=== PATIENT | female | born 1960 | race Asian ===

== ENCOUNTER 2017-12-23 17:20 | Emergency (ER) | payer OTHER, SELFPAY ==
[2017-12-23 17:27] VITALS: BP 131/55; PULSE 91; RESP 15; TEMP 37.5; O2SAT 100; BMI 21.2
--- NOTE | 2017-12-23 17:58 | ED.LOWEXIN ---
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 She states she does a lot of lifting and twisting. He states that for the last several days she has noticed pain over the left hip and extending down the lateral aspect of her proximal left leg. She denies any distinct injury. She has not felt any popping or clicking. No prior injury. MD complaint: other (Hip pain) Onset (ago): day(s) Injury: Left: hip Type of Injury: unknown Place: work Severity: mild Severity scale (1-10): 4 Relieving factors: nothing Exacerbating factors: weight bearing (Mainly with twisting.) Context: other (See above) Associated symptoms: other (No snap or pop, swelling, numbness, tingling. Patient has been bearing weight.) Other symptoms: none Related Data Allergies Allergy/AdvReac Type Severity Reaction Status Date / Time No Known Drug Allergies Allergy Verified 12/23/17 17:27 Review of Systems Review of Systems All systems reviewed & are unremarkable except as noted in HPI and below Constitutional Denies chills, Denies fever(s), Denies lethargy and Denies weakness Eyes Denies change in vision, Denies eye discharge, Denies irritation and Denies loss of vision ENT Ears, Nose, Mouth, and Throat: Denies change in voice, Denies neck pain and Denies sore throat Cardiovascular Denies chest pain, Denies irregular heart rhythm, Denies lightheadedness, Denies palpitations, Denies dyspnea, Denies dyspnea on exertion and Denies orthopnea Respiratory Denies cough, Denies dyspnea, Denies dyspnea on exertion and Denies wheezing Gastrointestinal Gastrointestinal: Denies abdominal pain, Denies change in bowel habits, Denies diarrhea, Denies nausea and Denies vomiting Genitourinary Denies hematuria, Denies flank pain, Denies urinary incontinence and Denies urinary urgency Musculoskeletal Denies neck pain Comments: Left hip pain Integumentary/Breasts Denies pruritus, Denies erythema, Denies rash and Denies wounds Neurologic Denies confusion, Denies loss of vision and Denies weakness Psychiatric Denies anxiety, Denies confusion, Denies depression, Denies homicidal ideation and Denies suicidal ideation Endocrine Denies palpitations Hematologic/Lymphatic Denies easy bruising Allergic/Immunologic Denies wheezing PFSH Social History Smoking Status: Never smoker Exam Initial Vital Signs Initial Vital Signs: Vital Signs Temperature 99.5 F 12/23/17 17:27 Pulse Rate 91 H 12/23/17 17:27 Respiratory Rate 15 12/23/17 17:27 Blood Pressure 131/55 H 12/23/17 17:27 Pulse Oximetry 100 12/23/17 17:27 Eyes General: appearance normal, both eyes and all related structures Eyelids: eyelids normal Conjunctivae: conjunctivae normal Sclera: sclerae normal Pupils: PERRL EOM: EOM intact bilaterally Neck Neck: normal visual inspection, trachea midline, No lymphadenopathy, No midline deformity and No JVD Lymphatic: No lymphedema Resp Effort & Inspection: normal respiratory effort Cardio Rate: regular rate Rhythm: regular rhythm Pulses: normal peripheral pulses Skin General: no rashes or lesions noted, No jaundice and No petechiae Neuro General: alert, oriented x3, gait normal and no focal motor deficits Speech: speech normal Extrem General: full ROM, no clubbing, cyanosis or edema, no pedal edema and no calf tenderness Left lower extremity: full ROM and hip/thigh (Patient has mild tenderness over her left hip laterally. No tenderness over the inguinal ligament. Patient has full active and passive range of motion at the hip and knee on the left. No edema.) Course Hospital Course: . Patient was stable in the emergency department. I did discuss with the patient and that there is no indication for x-ray at this time, as patient has no history of arthritis or pain in this area in the past, and has not had a distinct trauma. I have recommended NSAIDs and rest as well as ice at this point in time, and if symptoms continue after 2 weeks without improvement, patient may follow up with her PCP to discuss MRI. Orders Ordered: Discontinued Medications Naproxen (Naprosyn) 500 mg PO NOW ONE Stop: 12/23/17 18:16 Vital Signs - 8 hr 12/23/17 17:27 12/23/17 18:52 Temperature 99.5 F 97.6 F Pulse Rate 91 H 79 Respiratory Rate 15 16 Blood Pressure 131/55 H Blood Pressure [Left Arm] 121/51 H Pulse Oximetry 100 99 MDM - Extremity Injury (Lower) Medical Records Attestation: I reviewed the patient's medical records. Discharge Plan Departure Patient Disposition: Home, Self-Care Clinical Impression: Hip strain Discharge Date/Time: 12/23/17 18:45 Instructions: DI for Muscle Strain Referrals: [facility] [Provider Group] (Please follow up in 2 weeks if your pain is not better.) Stand Alone Forms: Work/School Restrictions
[2017-12-23 18:52] VITALS: BP 121/51; PULSE 79; RESP 16; TEMP 36.4; O2SAT 99
--- NOTE | 2017-12-23 19:21 | PC.NURSE ---
1845 Pt. discharged - refused to wait longer for Sae from pharmacy
== END 2017-12-23 18:45 | disposition home or self-care (01) ==
PROVIDERS: Emergency Provider Emergency Medicine
DX: S76.019A Strain of muscle, fascia and tendon of unspecified hip, initial encounter (principal); T73.3XXA Exhaustion due to excessive exertion, initial encounter
CPT/HCPCS: 99282

== ENCOUNTER 2019-05-17 10:43 | Emergency (ER) | payer OTHER, SELFPAY ==
[2019-05-17 10:57] VITALS: BP 157/72; PULSE 94; RESP 18; TEMP 38; O2SAT 97; BMI 22.2
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
[2019-05-17] MEDS: ACETAMINOPHEN 325 MG TABLET 650 MG PO (11:23)
[2019-05-17 11:55] LABS: Influenza A - CEPHEID Flu A NEGATIVE (NEGATIVE); Influenza B - CEPHEID Flu B NEGATIVE (NEGATIVE)
[2019-05-17 12:38] VITALS: BP 148/74; PULSE 88; RESP 16; TEMP 37.7; O2SAT 97
== END 2019-05-17 12:39 | disposition home or self-care (01) ==
PROVIDERS: Emergency Provider Emergency Medicine
DX: J06.9 Acute upper respiratory infection, unspecified (principal)
CPT/HCPCS: 87502; 99283